=== PATIENT | female | born 1980 | race Caucasian/White ===

== ENCOUNTER 2018-11-02 22:14 | Emergency (ER) | payer MEDICAID ==
[~2018-11-02] VITALS: Ht 165.1 cm; Wt 63.5 kg
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
[2018-11-02 23:19] LABS: BASOPHILS % (AUTO) 0.6 % (0.0-2.0); HEMATOCRIT 37 % (33-45); HEMOGLOBIN 12.4 g/dL (11.5-14.8); LYMPHOCYTES # (AUTO) 1.5 /CMM (0.8-4.8); LYMPHOCYTES % (AUTO) 19.9 % (20.0-44.0); MEAN CORPUSCULAR HGB CONC 33 g/dl (31.0-36.0); MEAN CORPUSCULAR VOLUME 84 fL (82-100); MONOCYTES # (AUTO) 0.6 /CMM (0.1-1.30); MONOCYTES % (AUTO) 7.8 % (2.0-12.0); NEUTROPHILS # (AUTO) 5.5 /CMM (1.8-8.9); NEUTROPHILS % (AUTO) 70.7 % (43.0-81.0); PLATELET COUNT (AUTO) 199 /CMM (150-450); RED BLOOD CELL COUNT(AUTO) 4.41 MIL/uL (4.0-5.2); WHITE BLOOD COUNT (AUTO) 7.7 K/uL (4.3-11.0)
[2018-11-02 23:25] LABS: CREATININE 0.7 mg/dL (0.6-1.3); POTASSIUM 4.1 mmol/L (3.5-5.1)
[2018-11-02] MEDS ORDERED: ONDANSETRON 4 MG TAB.RAPDIS ONE (23:28)
[2018-11-02] MEDS ORDERED: HYDROCODONE/APAP 5/325MG 1 EACH TABLET ONE (23:28)
[2018-11-02] MEDS ORDERED: ONDANSETRON 4 MG TAB.RAPDIS SL ONE (23:30)
[2018-11-02] MEDS ORDERED: IV NS 0.9% 1,000 ML BAG IV ONE (23:30)
[2018-11-02] MEDS ORDERED: HYDROCODONE/APAP 5/325MG 1 EACH TABLET PO ONE (23:30)
[2018-11-02 23:32] LABS: BILIRUBIN,DIRECT 0.1 mg/dL (0.0-0.2); BILIRUBIN,TOTAL 0.2 mg/dL (0.2-1.0); TOTAL PROTEIN, SERUM 7.6 g/dL (6.4-8.2)
[2018-11-03] MEDS ORDERED: IOHEXOL-300 100 ML VIAL IV ONE
[2018-11-03] MEDS ORDERED: CT SWABBABLE VALVE TRANS SET 1 EA INFUS.SET MC ONE
[2018-11-03] MEDS ORDERED: IV NS 0.9% 250 ML IV ONE
--- NOTE | 2018-11-03 00:12 | NUR ---
PT RETURNED FROM CT
--- NOTE | 2018-11-03 01:34 | NUR ---
Patient discharged to home in stable condition. Written and verbal after care instructions given. Patient verbalizes understanding of instruction.IV removed. Catheter intact and site benign. Pressure and 4x4 applied to site. No bleeding noted.Pt ambulatory with a steady gait
[2018-11-03 01:35] VITALS: BP 118/64
== END 2018-11-03 01:37 | disposition home or self-care (01) ==
LOC: ER 22:18
DX: S20.319A Abrasion of unspecified front wall of thorax, initial encounter (principal); M54.2 Cervicalgia; M79.10 Myalgia, unspecified site; E04.1 Nontoxic single thyroid nodule; E86.0 Dehydration; Z88.5 Allergy status to narcotic agent; Z88.6 Allergy status to analgesic agent; V49.59XA Passenger injured in collision with other motor vehicles in traffic accident, initial encounter; Y93.89 Activity, other specified; Y92.413 State road as the place of occurrence of the external cause; Y99.8 Other external cause status
CPT/HCPCS: 36415; 71260; 72125; 74177; 80048; 80076; 83690; 84702; 85025; 85730; 96360; 99284; J7030; J7050; Q0162; Q9967